=== PATIENT | female | born 1985 | race Two or more races ===

== ENCOUNTER 2024-10-30 10:34 | Emergency (ER) | payer MEDICAID, SELFPAY ==
[2024-10-30 10:35] VITALS: PULSE 82; RESP 16; O2SAT 98
[2024-10-30 10:59] VITALS: BP 143/82; PULSE 73; RESP 18; TEMP 36.8; O2SAT 100; BMI 47.5
--- NOTE | 2024-10-30 11:16 | XR_ITS ---
Examination: CT abdomen and pelvis without contrast. Coronal 3-D reconstructions. Sagittal 2-D reconstructions. Date and time of exam:October 30, 2024 at 1554 hours Comparison January 02, 2015 INDICATIONS: Onset left-sided flank pain today, history 5 mm right renal calculus right hydronephrosis on CT study 2014 CTDI: vol (mGy): 18.6 DLP: (mGycm): 1066 Technique: Axial images of the abdomen have been obtained, 3 mm slice thickness Intravenous contrast material has not been administered. Low dose protocols were performed. One or more of the following dose reduction techniques were used; automated exposure control, adjustment of the mA and/or KV according to patient size, use of iterative reconstruction technique. Findings: No focal liver or splenic lesions No gallstones No pancreatic or adrenal mass Multiple bilateral renal calculi 1 to 3 mm No hydronephrosis or ureteral calculi Aorta normal size No bowel obstruction Normal appendix No diverticulitis Retroverted uterus No adnexal mass No bladder calculi Intact osseous structures IMPRESSION: Multiple tiny bilateral nonobstructing renal calculi, no hydronephrosis or ureteral calculi Normal appendix No bowel obstruction No bladder mass or bladder calculi
--- NOTE | 2024-10-30 11:17 | EDRME_ITS ---
Rapid Medical Screening Exam [facility] Arrival date/time: 10/30/24 10:34 39-year-old female presents to the emergency department complaint of abdominal pain and back pain as well as nausea and vomiting Chief Complaint: Abdominal Pain Vital signs: Vital Signs Temperature 98.3 F 10/30/24 10:59 Pulse Rate 73 10/30/24 10:59 Respiratory Rate 18 10/30/24 10:59 Blood Pressure 143/82 H 10/30/24 10:59 Pulse Oximetry (%) 100 10/30/24 10:59 Oxygen Delivery Method Room Air 10/30/24 10:59
[2024-10-30 11:46] LABS: Basophils # (Auto) 0.1 Thou/mm3 (0.0-0.2); Basophils % (Auto) 0 % (0-2.5); Eosinophils # (Auto) 0.2 Thou/mm3 (0.0-0.5); Eosinophils % (Auto) 1 % (0-10); Hemoglobin 12.5 g/dL (12.0-16.0); Immature Granulocytes % (Auto) 0 % (0-0); Immature Granulocytes Auto 0.02 Thou/mm3 (0.00-0.00); Lymphocytes # (Auto) 1.4 Thou/mm3 (1.0-4.8); Lymphocytes % (Auto) 11 % (10-50); Mean Corpuscular HGB Conc 33.8 g/dl (31.0-37.0); Mean Corpuscular Hemoglobin 29.3 pg (25.0-35.0); Mean Corpuscular Volume 87 fL (80-100); Monocytes # (Auto) 0.7 Thou/mm3 (0.0-0.8); Monocytes % (Auto) 6 % (0-12); Neutrophils # (Auto) 10.3 Thou/mm3 (1.8-7.7); Neutrophils % (Auto) 81 % (37-80); Nucleated Red Blood Cell % 0 /100 WBC (0); Platelet Count 287 Thou/mm3 (140-440); RDW Standard Deviation 49.6 fL (36.4-46.3); Red Blood Count 4.26 Miln/mm3 (4.00-5.20); White Blood Count 12.7 Thou/mm3 (3.6-11.0)
--- NOTE | 2024-10-30 11:59 | PC.NURSE ---
nax1 [id number]
[2024-10-30] MEDS: ONDANSETRON ODT 4 MG TABRAP PO (12:05)
[2024-10-30] MEDS: KETOROLAC INJ 30 MG/ML VIAL IM (12:05)
[2024-10-30 12:19] LABS: Alanine Aminotransferase 31 U/L (10-49); Albumin, Serum 4.3 gm/dL (3.5-5.0); Albumin/Globulin Ratio 1.3 (1.2-2.2); Alkaline Phosphatase 90 U/L (46-116); Anion Gap 10 (7-16); Aspartate Amino Transferase 31 U/L (0-34); BUN/Creatinine Ratio 16 Ratio (12-20); Bilirubin,Total 0.3 mg/dL (0.3-1.2); Blood Urea Nitrogen 14 mg/dL (9-23); Calcium 9.5 mg/dL (8.3-10.6); Calcium (Corrected) 9.5 mg/dL (8.5-10.1); Carbon Dioxide 23.9 mMol/L (20.0-31.0); Chloride 106 mMol/L (98-107); Creatinine (Component) 0.9 mg/dL (0.6-1.3); Estimated Creatinine Clearance 104.3 mL/min (>60); Globulin 3.4 gm/dL (2.3-3.5); Glucose 109 mg/dL (74-106); Lipase 29 U/L (12-53); Osmolality,Calculated 280 (275-295); Potassium 4.1 mMol/L (3.4-5.1); Sodium 140 mMol/L (136-145); Total Protein 7.7 gm/dL (5.7-8.2); eGFR > 60 See Note
[2024-10-30 14:32] VITALS: BP 134/78; PULSE 80; RESP 16; TEMP 36.9; O2SAT 99
[2024-10-30 14:38] LABS: Collection Type, Urine Clean Catch
[2024-10-30 14:54] LABS: HCG Qualitative,Urine Negative
[2024-10-30 15:00] LABS: Bacteria,Urine Rare; Bilirubin,Urine Negative (Negative); Blood,Urine 2+ (Negative); Clarity,Urine Turbid (Clear/Hazy); Color,Urine Lt-Yellow (Lt Yel-Yel); Glucose, Urine Negative (Negative); Ketones,Urine 1+ (Negative); Leukocyte Esterase,Urine Positive (Negative); Nitrite,Urine Negative (Negative); Protein,Urine Trace (Neg - Trace); RBC,Urine 42 /hpf (0-3); Specific Gravity,Urine 1.022 (1.001-1.035); Squamous Epithelial Cell,Urine 10 /hpf (0-5); Urobilinogen,Urine Negative mg/dL (0.0-1.0); WBC,Urine 13 /hpf (0-5)
[2024-10-30 15:22] LABS: Culture Indicated,Urine Yes
[2024-10-30 17:39] VITALS: BP 146/76; PULSE 60; RESP 18; TEMP 36.7; O2SAT 97
--- NOTE | 2024-10-30 17:43 | PD.EDABDPN ---
ED Abdominal Pain RME/HPI General Chief Complaint: Abdominal Pain Stated complaint: LEFT ABD PAIN RADIATING TO BACK X 1HR; VOMITING Time seen by provider: 10/30/24 17:34 Arrival date/time: 10/30/24 10:34 RME / HPI RME / HPI narrative: 39-year-old female presents to the emergency department complaint of left abdominal pain and back pain as well as nausea and vomiting. Patient denies any other complaints no medication was taken prior to arrival. Related Data Previous Rx's ?Medication ?Instructions ?Recorded hydrocodone 5 mg-acetaminophen 325 1 tab PO BID PRN pain #10 tabs 05/10/21 mg tablet ibuprofen 800 mg tablet 800 mg PO TID PRN pain #30 tabs 05/10/21 albuterol sulfate 90 mcg/actuation 1 puff inhalation Q6H PRN 09/21/23 aerosol inhaler (Ventolin HFA) shortness of breath or wheezing #6.7 grams dextromethorphan-guaifenesin 10 10 ml PO Q8H PRN cough #500 mL 09/21/23 mg-100 mg/5 mL oral liquid ibuprofen 600 mg tablet 600 mg PO TID PRN pain #30 tabs 09/21/23 ibuprofen 800 mg tablet 800 mg PO Q8H PRN pain #30 tabs 10/30/24 tamsulosin 0.4 mg capsule (Flomax) 0.4 mg PO QDAY #14 caps 10/30/24 Allergies Allergy/AdvReac Type Severity Reaction Status Date / Time No Known Allergies Allergy Verified 04/26/22 17:20 Review of Systems Review of Systems Narrative Review of Systems: Review of system reviewed and within normal limits except mentioned in HPI ED Exam Narrative Physical exam: VITAL SIGNS: Reviewed. GENERAL APPEARANCE: Alert and interactive, follows commands, no acute distress, HEAD AND FACE: Non-traumatic. ENT: PERRL, pink conjunctivitis, eyelid no trauma, Mucous membrane moist. NECK: Supple, nontender, no nuchal rigidity. CHEST: No tenderness, no crepitus, no paradoxical movement, no retractions. LUNGS: Clear, well ventilated, symmetric, no rales, no wheezing, no ronchi, no stridor, good breath sounds bilaterally. HEART: Regular rate, regular rhythm, no murmur, no gallops. ABDOMEN: Soft, positive bowel sounds, nondistended, no guarding, left lower quadrant tenderness, no rebound, no masses, RECTAL: Deferred. GENITAL: Deferred. NEUROLOGICAL: Gross motor function intact sensory function intact, Appropriate for age. MUSCULOSKELETAL: low back nontender, full range of motion. EXTREMITIES: Nontender, full range of motion. SKIN: Color pink, dry, no rash, no lacerations, no abrasions, no contusions. LYMPHATICS: Deferred. Course Quality Measures none Orders Category Date Time Status CT abdomen pelvis wo con Stat Exams 10/30/24 11:16 Completed CBC Stat Lab 10/30/24 11:27 Completed Comprehensive Metabolic Panel Stat Lab 10/30/24 11:27 Completed HCG Qualitative,Urine Stat Lab 10/30/24 14:26 Completed Lipase Stat Lab 10/30/24 11:27 Completed UA, C/S IF [Urinalysis, C/S if Indicated] Stat Lab 10/30/24 14:26 Completed Urine Culture Stat Lab 10/30/24 14:26 Received Ketorolac Inj [Toradol Inj] Med 10/30/24 11:16 Discontinued 30 mg IM X1 ONE Ondansetron Odt [Zofran Odt] Med 10/30/24 11:16 Discontinued 4 mg PO X1 ONE Vital Signs Vital signs: Vital Signs Temperature 98.3 F 10/30/24 10:59 Pulse Rate 73 10/30/24 10:59 Respiratory Rate 18 10/30/24 10:59 Blood Pressure 143/82 H 10/30/24 10:59 Pulse Oximetry (%) 100 10/30/24 10:59 Oxygen Delivery Method Room Air 10/30/24 10:59 Abdominal Pain MDM MDM Narrative [facility] Narrative:: 39-year-old female presents to the emergency department complaint of left abdominal pain and back pain as well as nausea and vomiting. Patient denies any other complaints no medication was taken prior to arrival. Laboratory workup is significant for hematuria but no sign of UTI. Is a dirty collection also. CBC CMP all came back normal CT scan of the abdomen and pelvis showed Multiple tiny bilateral nonobstructing renal calculi, no hydronephrosis or ureteral calculi Normal appendix No bowel obstruction No bladder mass or bladder calculi Patient data External records reviewed:: None Clinical information provided by:: patient Social determinants that could affect healthcare access:: none Patient has the following chronic illnesses:: None How is presenting disease/condition affected by chronic disease/condition?: no chronic disease Evaluation data The following diagnostics were reviewed and interpreted by me:: lab results and radiology exam(s) Lab and/or radiology exams considered but not ordered:: None Interpretation Summary: See results in [facility] Medications / Prescriptions Medications or Prescriptions considered but not ordered:: None Medication administrations:: Medication Administration History Discontinued Medications Ketorolac Tromethamine (Ketorolac Inj 30 Mg/Ml Vial) 30 mg IM X1 ONE Stop: 10/30/24 11:17 Last Admin: 10/30/24 12:05 Dose: 30 mg Documented By: ADAM Ondansetron HCl (Ondansetron Odt 4 Mg Tabrap) 4 mg PO X1 ONE; Protocol Stop: 10/30/24 11:17 Last Admin: 10/30/24 12:05 Dose: 4 mg Documented By: ADAM Zozabrina Toradol Consultations Consultation(s) initiated? (list below): No Diagnosis Differential diagnosis abdominal pain: abdominal pain, calculus of kidney, pancreatitis and small bowel obstruction Most likely diagnosis given after review of the tests above:: Nephrolithiasis Admission Indicated Admission indicated?: not indicated Admission Request Was there a request for admission?: No Disposition Plan Disposition Plan: Discharge Discharge Attestation Discharge Attestation: The patient and all family members were given an opportunity to ask questions and understood the discharge instructions. Discharge instructions specifically effects, indications for sooner follow up or return to the emergency department, and the expected course of current diagnosis. Patient condition: Stable Discharge Plan Plan Patient Disposition: HOME (Self Care) Disposition Comment: stable Prescriptions/Referrals Prescriptions/Med Rec: New tamsulosin [Flomax] 0.4 mg capsule 0.4 mg PO QDAY Qty: 14 0RF ibuprofen 800 mg tablet 800 mg PO Q8H PRN (Reason: pain) Qty: 30 0RF No Action hydrocodone-acetaminophen 5-325 mg tablet 1 tab PO BID MDD 10 PRN (Reason: pain) Qty: 10 0RF ibuprofen 800 mg tablet 800 mg PO TID PRN (Reason: pain) Qty: 30 0RF dextromethorphan-guaifenesin 10-100 mg/5 mL liquid 10 ml PO Q8H PRN (Reason: cough) Qty: 500 0RF ibuprofen 600 mg tablet 600 mg PO TID PRN (Reason: pain) Qty: 30 0RF albuterol sulfate [Ventolin HFA] 90 mcg/actuation HFA aerosol inhaler 1 puff inhalation Q6H PRN (Reason: shortness of breath or wheezing) Qty: 6.7 0RF Referrals: No Primary/Family,Physician [Primary Care Provider] - In 1 week Problem List Clinical Impression: Nephrolithiasis Patient/Caregiver Discharge Instructions Discharge Activity: activity as tolerated Education Materials: ED Kidney Stone w/ Colic Additional Instructions: Thank you for the opportunity for serving you today. You are stable for discharged . You are advised to: Follow-up with your PCP in 1 to 2 days and ask per referral to urologist Return to ED for worsening of symptoms Increase oral fluids Take medication as prescribed Print Language: Syriac Stand Alone Forms: [facility]ina Award Info., Patient Portal Info Letter
== END 2024-10-30 18:20 | disposition home or self-care (01) ==
PROVIDERS: Nurse Practitioner Primary Care; Emergency Provider Emergency Medicine
DX: N20.0 Calculus of kidney (principal); R31.9 Hematuria, unspecified
CPT/HCPCS: 36415; 74176; 80053; 81001; 81025; 83690; 85025; 87086; 96372; 99284; J1885; Q0162